=== PATIENT | male | born 1970 | race African-American/Black ===

== ENCOUNTER 2023-12-14 16:07 | Inpatient (IN) | payer MEDICARE ==
[~2023-12-14] VITALS: Ht 167.6 cm; Wt 86.2 kg
[2023-12-14 16:19] VITALS: O2SAT 98
[2023-12-14] MEDS: SODIUM CHLORIDE 0.9% 1000ML BAG (SEPSIS BOLUS) IV ONE (17:39)
[2023-12-14 17:43] LABS: BASOPHILS % 0.7 % (0.0-2.0); EOSINOPHILS % 0.5 % (0.0-5.0); HEMATOCRIT. 34.6 % (42.0-52.0); HEMOGLOBIN. 11.4 g/dL (14.0-18.0); LYMPHOCYTES % 18.1 % (20.0-50.0); MEAN CORPUSCULAR HEMOGLOBIN 32.2 pg (28.0-32.0); MEAN CORPUSCULAR HGB CONC 32.8 g/dL (31.0-37.0); MEAN CORPUSCULAR VOLUME 98.1 fL (80.0-94.0); MEAN PLATELET VOLUME 8.9 fl (7.4-10.4); MONOCYTES % 11.3 % (2.0-8.0); NEUTROPHILS % 69.4 % (40.0-76.0); PLATELET 202 x1000/uL (130-400); RED BLOOD CELL COUNT 3.53 mill/uL (4.7-6.1); RED CELL DISTRIBUTION WIDTH 12.7 % (11.6-14.6); WHITE BLOOD COUNT 12.2 x1000/uL (4.5-11.0)
[2023-12-14] MEDS: MORPHINE SULFATE 4 MG/ML INJ (FOR IV/IM USE) IV STA (17:45)
[2023-12-14] MEDS: ONDANSETRON HCL 4MG/2ML INJ IV STA (17:51)
[2023-12-14] MEDS: VANCOMYCIN 1G PREMIX 200 ML IV ONE (17:57)
[2023-12-14] MEDS: PIPERACILLIN/TAZO 3.375G/50ML 50 ML IV ONE (17:58)
[2023-12-14 18:17] LABS: CARBON DIOXIDE 23 mEq/L (21-32); CHLORIDE 103 mEq/L (98-107); POTASSIUM 4.1 mEq/L (3.5-5.1); SODIUM 135 mEq/L (136-145)
[2023-12-14 18:18] LABS: CALCIUM 9.6 mg/dL (8.7-10.4)
[2023-12-14 18:22] LABS: CREATININE 1.5 mg/dL (0.6-1.3); GLUCOSE 121 mg/dL (70-105)
[2023-12-14 18:23] LABS: UREA NITROGEN BLOOD 21 mg/dL (9-23)
[2023-12-14 18:24] LABS: ALANINE AMINOTRANSFERASE 39 IU/L (10-49)
[2023-12-14 18:25] LABS: ALBUMIN 4.3 g/dL (3.2-4.8); ASPARTATE AMINOTRANSFERASE 33 IU/L (<34); BILIRUBIN TOTAL 0.6 mg/dL (0.1-1.0); PROTEIN TOTAL 8.2 g/dL (6.0-8.3)
[2023-12-14] MEDS: MORPHINE SULFATE 2 MG/ML INJ (NOT FOR IM USE) IV ONE (21:11)
[2023-12-14] MEDS: IOHEXOL-300 100 ML BOTTLE ONE (23:06)
[2023-12-15 02:30] VITALS: BP 123/98; PULSE 105; RESP 18; TEMP 97.9
[2023-12-15] MEDS ORDERED: DEXTROSE 50% WATER 50ML SYRINGE IV PRN (03:15)
[2023-12-15] MEDS: HYDROCODONE/ACETAMINOPHEN 5/325MG TABLET PO PRN (03:27)
[2023-12-15] MEDS ORDERED: NALOXONE HCL 0.4MG/ML VIAL IV PRN (03:30)
[2023-12-15 04:00] VITALS: BP 132/83; PULSE 88; RESP 18; TEMP 98.3
[2023-12-15] MEDS ORDERED: AMLO10TA80 MT (04:39)
[2023-12-15] MEDS ORDERED: ASPI-1497 MT (04:40)
[2023-12-15] MEDS ORDERED: INSU100I28 SQ (04:41)
[2023-12-15] MEDS ORDERED: FAMO-135 PO (04:41)
[2023-12-15] MEDS ORDERED: LOSA25TA26 MT (04:42)
[2023-12-15] MEDS ORDERED: OMEP40CA20 PO (04:42)
[2023-12-15] MEDS ORDERED: P50 MT (04:43)
[2023-12-15] MEDS: OMEPRAZOLE 20MG CAPSULE EXTENDED RELEASE PO SCH (06:21)
[2023-12-15] MEDS: INSULIN LISPRO 100 UNITS/ML SUBCUT SCH (06:34)
[2023-12-15] MEDS: BLOOD SUGAR DIAGNOSTIC STRIP TEST SCH (06:34)
[2023-12-15 08:00] VITALS: BP 149/88; PULSE 89; RESP 18; TEMP 98.4
[2023-12-15] MEDS: AMLODIPINE 10MG TABLET PO SCH (08:59)
[2023-12-15] MEDS: FAMOTIDINE 20MG TABLET PO SCH (09:00)
[2023-12-15] MEDS: LOSARTAN 25 MG TABLET PO SCH (09:00)
[2023-12-15] MEDS: ASPIRIN 81MG TABLET PO SCH (09:05)
[2023-12-15 09:28] LABS: BASOPHILS % 0.5 % (0.0-2.0); EOSINOPHILS % 1.3 % (0.0-5.0); HEMATOCRIT. 34.4 % (42.0-52.0); HEMOGLOBIN. 11.3 g/dL (14.0-18.0); LYMPHOCYTES % 24.3 % (20.0-50.0); MEAN CORPUSCULAR HEMOGLOBIN 32.3 pg (28.0-32.0); MEAN PLATELET VOLUME 9.3 fl (7.4-10.4); MONOCYTES % 11.6 % (2.0-8.0); NEUTROPHILS % 62.3 % (40.0-76.0); PLATELET 209 x1000/uL (130-400); RED BLOOD CELL COUNT 3.51 mill/uL (4.7-6.1); RED CELL DISTRIBUTION WIDTH 12.6 % (11.6-14.6); WHITE BLOOD COUNT 9.9 x1000/uL (4.5-11.0)
[2023-12-15 09:44] LABS: CHLORIDE 102 mEq/L (98-107); SODIUM 132 mEq/L (136-145)
[2023-12-15 09:45] LABS: CALCIUM 9.6 mg/dL (8.7-10.4); CARBON DIOXIDE 24 mEq/L (21-32)
[2023-12-15 09:50] LABS: CREATININE 1.2 mg/dL (0.6-1.3); GLUCOSE 94 mg/dL (70-105); TRIGLYCERIDE 87 mg/dL (0-150); UREA NITROGEN BLOOD 16 mg/dL (9-23)
[2023-12-15 09:51] LABS: LDL CHOLESTEROL 59 mg/dL (5-100)
[2023-12-15 09:52] LABS: CHOLESTEROL 107 mg/dL (<200); HDL CHOLESTEROL 34 mg/dL (>55)
[2023-12-15 12:00] VITALS: BP 127/80; PULSE 88; RESP 18; TEMP 98.1
[2023-12-15] MEDS ORDERED: KETOROLAC 30MG/ML VIAL IV PRN (12:15)
[2023-12-15] MEDS: AMPICILLIN SOD/SULBACTAM NA 3 G in SODIUM CHLORIDE 0.9% 100 ML IV SCH (13:23)
[2023-12-15] MEDS: PREDNISONE 20MG TABLET PO SCH (18:12)
[2023-12-16 08:00] VITALS: BP 134/87; PULSE 78; RESP 18; TEMP 98.8
[2023-12-16] MEDS ORDERED: P20 PO (14:25)
[2023-12-16] MEDS ORDERED: AMOX1TAB16 MT (14:25)
[2023-12-17] MEDS ORDERED: FAMOTIDINE 20MG TABLET PO SCH (09:00)
== END 2023-12-16 16:25 | disposition home or self-care (01) | DRG 603 ==
LOC: ER 16:07 → 5WST 18:44 → 7EST 12-15 01:43 → 5EST 12-15 11:14 → 7EST 12-15 12:04
PROVIDERS: ADMIT Internal Medicine; ATTEND Internal Medicine
DX: L03.211 Cellulitis of face (principal); E11.9 Type 2 diabetes mellitus without complications; K02.9 Dental caries, unspecified; E66.9 Obesity, unspecified; M27.2 Inflammatory conditions of jaws; I50.9 Heart failure, unspecified; Z68.30 Body mass index [BMI] 30.0-30.9, adult; I11.0 Hypertensive heart disease with heart failure; Z88.8 Allergy status to other drugs, medicaments and biological substances
CPT/HCPCS: 36415; 70487; 80048; 80053; 80061; 82962; 83036; 83605; 83880; 84145; 85025; 99285; J0295; J2270; J2405; J2543; J3370; J7030; J7050; J7512; Q9967

== ENCOUNTER 2024-08-08 14:37 | Emergency (ER) | payer MEDICARE ==
[~2024-08-08] VITALS: Ht 172.7 cm; Wt 81.0 kg
[~2024-08-08 14:37] MED LIST: AMLO10TA80 MT; ASPI-1497 MT; FAMO-135 PO; INSU100I28 SQ; LANTUSUD SUBCUT; LOSA25TA26 MT; OMEP40CA20 PO; [UNRECOGNIZED DRUG - OTHER]
[2024-08-08 14:53] VITALS: O2SAT 97
[2024-08-08 16:04] LABS: BASOPHILS % 0.4 % (0.0-2.0); EOSINOPHILS % 0.6 % (0.0-5.0); HEMATOCRIT. 32.9 % (42.0-52.0); HEMOGLOBIN. 10.9 g/dL (14.0-18.0); LYMPHOCYTES % 23.8 % (20.0-50.0); MEAN CORPUSCULAR HEMOGLOBIN 31.9 pg (28.0-32.0); MEAN CORPUSCULAR HGB CONC 33.1 g/dL (31.0-37.0); MEAN CORPUSCULAR VOLUME 96.3 fL (80.0-94.0); MEAN PLATELET VOLUME 8.9 fl (7.4-10.4); MONOCYTES % 14.6 % (2.0-8.0); NEUTROPHILS % 60.6 % (40.0-76.0); PLATELET 227 x1000/uL (130-400); RED BLOOD CELL COUNT 3.42 mill/uL (4.7-6.1); RED CELL DISTRIBUTION WIDTH 12.4 % (11.6-14.6); WHITE BLOOD COUNT 9.4 x1000/uL (4.5-11.0)
[2024-08-08 16:10] LABS: POTASSIUM 5.4 mEq/L (3.5-5.1)
[2024-08-08 16:11] LABS: CALCIUM 9.9 mg/dL (8.7-10.4)
[2024-08-08 16:21] LABS: CREATININE 2.1 mg/dL (0.6-1.3)
[2024-08-08 16:39] LABS: BETA HYDROXYBUTYRATE 0.2 mMol/L (0.0-0.3)
[2024-08-08] MEDS: INSULIN REGULAR (HUMULIN R) 1000UNITS/10ML VIAL IV STA (20:25)
[2024-08-08 20:34] VITALS: BP 113/71; PULSE 89; RESP 19; TEMP 36.9; O2SAT 99
== END 2024-08-08 20:37 | disposition home or self-care (01) ==
LOC: ER 14:46
DX: E11.65 Type 2 diabetes mellitus with hyperglycemia (principal); I10 Essential (primary) hypertension; J44.9 Chronic obstructive pulmonary disease, unspecified; F12.90 Cannabis use, unspecified, uncomplicated; Z79.4 Long term (current) use of insulin; Z79.52 Long term (current) use of systemic steroids; Z79.82 Long term (current) use of aspirin; Z79.899 Other long term (current) drug therapy; Z88.8 Allergy status to other drugs, medicaments and biological substances
CPT/HCPCS: 36415; 80048; 82010; 82962; 85025; 99283